=== PATIENT | male | born 1995 | race Caucasian/White ===

== ENCOUNTER 2018-07-31 14:07 | Emergency (ER) | payer OTHER ==
[~2018-07-31] VITALS: Ht 167.6 cm; Wt 91.3 kg
[2018-07-31 14:10] VITALS: BP 135/80
--- NOTE | 2018-07-31 16:05 | NUR ---
PT WAITING IN LOBBY, PT DENIES PAIN AT THIS TIME, VSS.
--- NOTE | 2018-07-31 17:19 | NUR ---
PT AMBULATED TO BED 09.
--- NOTE | 2018-07-31 18:23 | NUR ---
C/O BRIGHT RED BLOOD WITH HARD COUGHING SPELLS X 2 WKS DENIES NIGHT SWEATS, WEIGHT LOSS, SEVERE FATIGUE---
[2018-07-31] MEDS ORDERED: MULTIVITAMIN-12 10 ML, THIAMINE 100 MG, MAGNESIUM SULFATE 50% 2,000 MG, FOLIC ACID 5 MG... IV ONE ×5 (18:35)
[2018-07-31] MEDS ORDERED: LEVOFLOXACIN 500 MG/D5W PREMIX 100 ML IV ONE (18:35)
[2018-07-31] MEDS ORDERED: ALBUTEROL SULFATE/IPRATROPIU 3 ML SOL IH ONE (18:35)
--- NOTE | 2018-07-31 19:15 | NUR ---
RECEIVED REPORT FROM AM NURSE. PT LAYING IN BED, RR EVEN AND UNLABORED. DENIES CP, SOB, N/V AT THIS TIME. REPORTS COUGHING UP BLOOD X2 WEEKS. REPORTS MILD EPIGASTRIC BURNING.
[2018-07-31 19:32] LABS: BASOPHILS % (AUTO) 0.5 % (0.0-2.0); EOSINOPHILS # (AUTO) 0.2 K/uL (0-0.4); EOSINOPHILS % (AUTO) 2.1 % (0.0-4.0); HEMATOCRIT 50.1 % (36-52); HEMOGLOBIN 17.6 g/dL (12.0-18.0); LYMPHOCYTES # (AUTO) 2.6 K/uL (2.0-11.5); LYMPHOCYTES % (AUTO) 34.9 % (20.5-51.1); MEAN CORPUSCULAR HEMOGLOBIN 31 pg (27-31); MEAN CORPUSCULAR HGB CONC 35 g/dL (33-37); MEAN CORPUSCULAR VOLUME 88.6 fL (80-94); MONOCYTES # (AUTO) 0.4 K/uL (0.8-1.0); MONOCYTES % (AUTO) 5.9 % (1.7-9.3); NEUTROPHILS # (AUTO) 4.3 K/uL (1.8-7.7); NEUTROPHILS % (AUTO) 56.6 % (42.2-75.2); PLATELET COUNT (AUTO) 238 K/uL (140-450); RED BLOOD CELL COUNT(AUTO) 5.66 MIL/uL (4.20-6.10); RED CELL DISTRIBUTION WIDTH 12.9 % (11.6-13.7); WHITE BLOOD COUNT (AUTO) 7.5 K/uL (4.8-10.8)
[2018-07-31] MEDS ORDERED: THIAMINE 200 MG/2 ML VIAL ONE (19:32)
[2018-07-31] MEDS ORDERED: MULTIVITAMIN-12 10 ML VIAL IV ONE (19:32)
[2018-07-31] MEDS ORDERED: FOLIC ACID 5 MG/ML SYR ONE (19:32)
[2018-07-31 19:43] LABS: ANION GAP 11.8 (8-16); CARBON DIOXIDE 29.1 mmol/L (21-32); CHLORIDE 104 mmol/L (98-107); GFR ARICAN-AMERICAN 118 mL/min (>90); GLUCOSE 95 mg/dL (74-106); POTASSIUM 3.9 mmol/L (3.5-5.1); SODIUM SERUM 141 mmol/L (136-145); UREA NITROGEN, BLOOD 10 mg/dL (7-18)
[2018-07-31 19:45] LABS: PROTHROMBIN TIME 9.8 secs (10.8-13.4)
[2018-07-31 19:49] LABS: ALBUMIN 4.4 g/dL (3.4-5.0); ASPARTATE AMINOTRANSFERASE 22 U/L (15-37); MAGNESIUM 2.1 mg/dL (1.8-2.4); TOTAL BILIRUBIN 1.5 mg/dL (0.0-1.0)
[2018-07-31 20:18] LABS: D-DIMER < 100 ng/ml (0-400)
[2018-07-31 20:39] LABS: BARBITURATE, URINE NEG. ng/ml (NEG <=200); BENZODIAZEPINE, URINE NEG. ng/mL (NEG <=200); CANNABINOID, URINE NEG. ng/mL (NEG <=50); COCAINE, URINE NEG. ng/mL (NEG <=300); OPIATE, URINE NEG. ng/mL (NEG <=2000); PHENCYCLIDINE SCREEN,URINE NEG. ng/mL (NEG <=25)
--- NOTE | 2018-07-31 20:40 | NUR ---
PER DR. ZHANG, IV BANANA BAG ORDER D/C, NOT NEEDED.
--- NOTE | 2018-07-31 20:50 | NUR ---
PER DR LEATHA BRUCE FOR D/C.
[2018-07-31 20:53] VITALS: BP 104/86
--- NOTE | 2018-07-31 20:53 | NUR ---
Patient discharged with v/s stable. Written and verbal after care instructions given and explained. Patient alert, oriented and verbalized understanding of instructions. Ambulatory with steady gait. All questions addressed prior to discharge. ID band removed. Patient advised to follow up with PMD. Rx of LEVAQUIN, ALBUTEROL INHALER given. Patient educated on indication of medication including possible reaction and side effects. Opportunity to ask questions provided and answered.
== END 2018-07-31 20:53 | disposition home or self-care (01) ==
LOC: MED 14:07
DX: J18.9 Pneumonia, unspecified organism (principal); J40 Bronchitis, not specified as acute or chronic; R79.89 Other specified abnormal findings of blood chemistry
CPT/HCPCS: 36415; 36600; 71045; 80053; 80305; 82550; 82803; 83605; 83735; 84484; 85025; 85379; 85610; 85651; 86140; 86886; 86900; 86901; 93005; 94640; 94760; 96365; 99284; G0482; J1956; J7620; A9153; J3411; J3490

== ENCOUNTER 2020-02-10 23:51 | Emergency (ER) | payer OTHER ==
[~2020-02-10] VITALS: Ht 170.2 cm; Wt 90.7 kg
[2020-02-11 00:10] VITALS: BP 140/86
--- NOTE | 2020-02-11 00:10 | NUR ---
TO CHAIR B AMBULATORY
--- NOTE | 2020-02-11 00:49 | NUR ---
PATIENT PRESENTS TO ED WITH RIGHT EYE PAIN AND FACIAL NUMBNESS.DENIES N/V/D; SKIN IS PINK/WARM/DRY; AAOX4 WITH EVEN AND STEADY GAIT; LUNGS CLEAR BL; HR EVEN AND REGULAR; PT DENIES ANY FEVER, CP, SOB, OR COUGH AT THIS TIME; PATIENT STATES PAIN OF 0/10 AT THIS TIME; VSS; PATIENT POSITIONED FOR COMFORT; HOB ELEVATED; BEDRAILS UP X2; BED DOWN. ER MD MADE AWARE OF PT STATUS.
--- NOTE | 2020-02-11 00:53 | NUR ---
ERMD AT BEDSIDE FOR MEDICAL EVALUATION.
[2020-02-11] MEDS ORDERED: methylPREDNISolone SS 125 MG in WATER STERILE 2 ML IM ONE (01:25)
[2020-02-11] MEDS ORDERED: diphenhydrAMINE 50 MG/ML VIAL IM ONE (01:25)
[2020-02-11] MEDS ORDERED: WATER STERILE 10 ML MC ONE (01:59)
[2020-02-11] MEDS ORDERED: methylPREDNISolone SS 125 MG/2 ML VIAL ONE (02:00)
--- NOTE | 2020-02-11 02:05 | NUR ---
pt states he will be getting a ride home from ER.
[2020-02-11 02:15] VITALS: BP 135/80
--- NOTE | 2020-02-11 02:15 | NUR ---
Patient discharged with v/s stable. Written and verbal after care instructions given and explained. Patient alert, oriented and verbalized understanding of instructions. Ambulatory with steady gait. All questions addressed prior to discharge. ID band removed. Patient advised to follow up with PMD. Rx of EPIPEN, PREDNISONE, FAMOTIDINE & BENADRYL given. Patient educated on indication of medication including possible reaction and side effects. Opportunity to ask questions provided and answered.
== END 2020-02-11 02:15 | disposition home or self-care (01) ==
LOC: MED 23:51
DX: R20.2 Paresthesia of skin (principal); R22.0 Localized swelling, mass and lump, head
CPT/HCPCS: 96372; 99284; J1200; J2930

== ENCOUNTER 2020-09-01 01:50 | Emergency (ER) | payer OTHER ==
[~2020-09-01] VITALS: Ht 170.2 cm; Wt 95.3 kg
[2020-09-01 01:52] VITALS: BP 133/74
--- NOTE | 2020-09-01 01:52 | NUR ---
TO BED AMBULATORY
--- NOTE | 2020-09-01 02:03 | NUR ---
PT BIB SELF FOR C/O RIGHT FOOT PAIN/NUMBNESS X 2 HOURS. PT DENIES INJURY TO THE AREA, NO NOTED DEFORMITY OR DISCOLORATION. PT REPORTS FOOT FEELS LIKE "NEEDLES." PT REPORTS PAIN 7/10, DENIES OTC PAIN MEDICATION. CAP REFILL < 3 SECONDS. SKIN IS WARM, DRY AND INTACT. MED HX: DENIES ALLERGIES: NKA
[2020-09-01] MEDS ORDERED: KETOROLAC 60 MG/2 ML VIAL IM ONE (02:10)
--- NOTE | 2020-09-01 02:30 | NUR ---
ERMD AT BEDSIDE.
[2020-09-01] MEDS ORDERED: IBUP-2213 PO (02:42)
== END 2020-09-01 02:46 | disposition home or self-care (01) ==
LOC: MED 01:50
DX: M76.891 Other specified enthesopathies of right lower limb, excluding foot (principal)
CPT/HCPCS: 96372; 99283; J1885

== ENCOUNTER 2021-06-27 05:03 | Emergency (ER) | payer OTHER ==
[~2021-06-27] VITALS: Ht 170.2 cm; Wt 102.1 kg
[~2021-06-27 05:03] MED LIST: IBUP-2213 PO
[2021-06-27 05:07] VITALS: BP 144/78
--- NOTE | 2021-06-27 05:25 | NUR ---
PT TAKEN TO ER BED 07
[2021-06-27] MEDS ORDERED: predniSONE 20 MG TAB PO ONE (05:30)
[2021-06-27] MEDS ORDERED: ALBUTEROL SULFATE/IPRATROPIU 3 ML SOL IH ONE (05:30)
--- NOTE | 2021-06-27 05:54 | NUR ---
XRAY AT BEDSIDE
[2021-06-27] MEDS ORDERED: ALBU0.0912 IH (05:55)
[2021-06-27] MEDS ORDERED: PRED20TA5 PO (05:55)
--- NOTE | 2021-06-27 06:06 | NUR ---
NEB TX PER RT AT BEDSIDE
[2021-06-27 06:18] VITALS: BP 144/78
--- NOTE | 2021-06-27 06:18 | NUR ---
Patient discharged with v/s stable. Written and verbal after care instructions given and explained. Patient alert, oriented and verbalized understanding of instructions. Ambulatory with steady gait. All questions addressed prior to discharge. ID band removed. Patient advised to follow up with PMD. Rx of ALBUTEROL SULFATE PREDNISONE given. Patient educated on indication of medication including possible reaction and side effects. Opportunity to ask questions provided and answered.
--- NOTE | 2021-06-27 06:35 | NUR ---
The patient's care was reviewed and supervised by Nadya Moreland RN.
== END 2021-06-27 06:18 | disposition home or self-care (01) ==
LOC: MED 05:03
DX: R06.02 Shortness of breath (principal); J45.909 Unspecified asthma, uncomplicated; Z79.1 Long term (current) use of non-steroidal anti-inflammatories (NSAID)
CPT/HCPCS: 71045; 94640; 99283; J7512; Q0092